=== PATIENT | male | born 1975 | race Two or more races ===

== ENCOUNTER → 2017-03-06 | Outpatient (CLI) | payer OTHER ==
--- NOTE | 2017-03-06 21:14 | XR ---
EXAMINATION TYPE: XR cervical spine limited DATE OF EXAM: 03/06/2017 COMPARISON: NONE HISTORY: 41-year-old male presents with headache, cervicalgia TECHNIQUE: 3 views FINDINGS: Odontoid view is normal. No predental space widening or prevertebral soft tissue swelling. No signifi cant spondylotic change seen. IMPRESSION: No significant degenerative change seen. Alignment is maintained.
== END | disposition home or self-care (01) ==
LOC: RADXRYALE 10:13
PROVIDERS: ATTEND Internal Medicine
DX: M54.2 Cervicalgia (principal)
CPT/HCPCS: 72040

== ENCOUNTER → 2021-06-28 | Outpatient (CLI) | payer OTHER ==
--- NOTE | 2021-06-28 21:30 | CONS ---
CONSULTATION DATE OF SERVICE: 06/28/2021 45-year-old gentleman has been evaluated in Sleep Center for obstructive sleep apnea- hypopnea syndrome. HISTORY OF PRESENT ILLNESS/SLEEP-WAKE EVALUATION: Patient has been diagnosed with obstructive sleep apnea 7 years ago in our Sleep Center. At that time, apnea-hypopnea index was 29.5. He was started on treatment with CPAP and he continued to use CPAP equipment until now. At the beginning, when he was on treatment, he feels better, but now while he continues to use his CPAP he feels sleepiness during the day. SLEEP SCHEDULE: His sleep schedule on weekdays from 11 p.m. to 7:15 am and on weekends he has the same sleep schedule actually. FALLING ASLEEP: No problems with falling asleep. No TV in bedroom. DURING SLEEP: Usually sleeps on the back position. He wakes up from sleep many times and snore while using his CPAP. [place] Sleepiness Scale significantly increased to 12. DURING THE DAY/SLEEP WAKE EVALUATION: He feels sleepiness during the day, episodes of irritability, take naps two times on afternoon. He drinks 1 cup of coffee a day. No history of hypnagogic hallucinations, sleep paralysis or cataplexy. I checked his CPAP unit. He is using equipment every night for more than 4 hours. Average usage 8.6 hours per night. Pressure is 6 cm of water. Leak is 2 L/minute, which is normal. Apnea-hypopnea index is 0.4 which is normal. The patient increased his weight about 30 pounds since previous sleep study. PAST MEDICAL HISTORY: Positive for headaches. MEDICATIONS: None. SOCIAL HISTORY: Negative for smoking, alcohol consumption occasional. FAMILY HISTORY: Positive for arthritis. REVIEW OF SYSTEMS: Sleepiness during the day. PHYSICAL EXAM: A 45-year-old gentleman without distress. BP 122/79, HR 94, RR 16, height 5 feet 7 inches, weight 221, BMI 34.6, temperature 98.1, oxygen saturation at room air 98%. Oropharynx: Low position of soft palate. NECK is wide 17 inches in circumference. Neck: Supple, no JVD. Thyroid is not palpable. LUNGS: Clear to percussion and to auscultation. Good air exchange. No wheezing or rhonchi. HEART: S1, S2 regular. No murmurs, gallops, or rubs. ABDOMEN: Obese. Soft and nontender. Bowel sounds are present. No organomegaly appreciated. EXTREMITIES: No clubbing or cyanosis. WELFARE ELIGIBILITY WORKER: Awake, alert, and oriented X3. Cranial nerves 2 to 7 intact. There is no fasciculation or atrophy. noted. No focal deficits observed. IMPRESSION: 1. Obstructive sleep apnea-hypopnea syndrome by results of polysomnogram in 2014, borderline to severe, apnea-hypopnea index 29.5. The patient demonstrated great compliance with treatment, benefitting from treatment, but recently developed sleepiness while using CPAP equipment. He increased his weight on about 30 pounds compared with the previous visit. Extremely low position of soft palate, wide neck. 2. Obesity. BMI 34.6. 3. Headaches. 4. Sleepiness during the day. PLAN: 1. I adjusted the machine to automatic regimen, changed pressure to the range 5-14 cm of water. 2. Patient will continue to use the equipment every night for the whole night. 3. Followup visit in 4 months. 4. If patient will continue symptoms of excessive daytime sleepiness, we may consider multiple sleep latency test. 5. Losing weight. 6. No driving if feeling sleepiness. 7. Prescription for all necessary CPAP supplies, including AirFit P10 medium mask has been written. Thank you very much for referring this patient for evaluation. Sincerely, Jose Toscano MD, PhD, FAASM Diplomat of [place] [employer] Sleep Medicine Board of [place]ductor Development Technician of [facility] [place] MMODL / JERICHON: [id number] /
== END ==
LOC: SLEEP 15:19
PROVIDERS: ATTEND Internal Medicine
DX: G47.33 Obstructive sleep apnea (adult) (pediatric) (principal); E66.9 Obesity, unspecified; Z68.34 Body mass index [BMI] 34.0-34.9, adult
CPT/HCPCS: 99202

== ENCOUNTER → 2022-06-17 | Outpatient (CLI) | payer OTHER ==
--- NOTE | 2022-06-17 13:26 | CT ---
EXAMINATION TYPE: CT brain w con CT DLP: 1108.4 mGycm, Automated exposure control for dose reduction was used. DATE OF EXAM: 06/17/2022 1:21 PM COMPARISON: None. CLINICAL INDICATION:Male, 46 years old with history of R26.9; R29.898; R25.1, R29.6; PHH, headaches, loss of balance TECHNIQUE: Axial CT images of the brain were obtained after the uneventful administration of 100 cc o f Isovue-[address] intraven[address] One or more CT dose reduction strategies were utilized during this examin ation. FINDINGS: Extra-axial spaces: No abnormal extra-axial fluid collections. Ventricular system: Within normal limits Cerebral parenchyma: No acute intraparenchymal hemorrhage or mass effect. The lindsey-white junction is well differentiated. No abnormal enhancement is seen after the administration of intravenous contras t. Cerebellum: Unremarkable. Mass effect: No evidence of midline shift. Intracranial vasculature: unremarkable Soft tissues: Normal. Calvarium/osseous structures: No depressed skull fracture. Paranasal sinuses and mastoid air cells: Clear. Visualized orbits: Orbital contents are intact. IMPRESSION: No acute intracranial process and no evidence to suggest intracranial mass.
== END | disposition home or self-care (01) ==
LOC: RADCTMAIN 12:51
PROVIDERS: ATTEND Family Medicine
DX: R26.9 Unspecified abnormalities of gait and mobility (principal); R29.898 Other symptoms and signs involving the musculoskeletal system; R25.1 Tremor, unspecified; R29.6 Repeated falls
CPT/HCPCS: 70460; Q9967

== ENCOUNTER → 2022-09-25 | Outpatient (CLI) | payer OTHER ==
--- NOTE | 2022-09-25 18:01 | P.PN ---
Subjective DATE: 09/25/2022 FOLLOW UP VISIT. Patient with obstructive sleep apnea hypopnea syndrome return to sleep center for follow-up visit. Information from previous visit have been reviewed. Patient is using PAP equipment every night for the whole night, getting PAP supplies in time. Patient CPAP unit was broken and he started to use his old CPAP unit. The patient does not have significant problems with the mask, PAP unit and humidification. Patient has symptoms of significant excessive daytime sleepiness. [place] sleepiness scale is in very high range of 21. Positive history of episodes of sleep paralysis and multiple awakenings from sleep while patient is using CPAP. I checked information from PAP unit. PAP unit pressure 6 cm H2O. Usage is 100 % for more then 4 hours, average 8 hours per night. Leak is 8 l/m, which is in acceptable range. Apnea Hypopnea Index is 0.3, which is normal. MEDICATIONS: None During physical exam: GENERAL: A pleasant patient without any distress. VITAL SIGNS: BP 126/84, HR 71, RR 16, weight 215.6, temperature 98.4, oxygen saturation at room air 98 % . HEENT: PERRLA, EOMI.low position of soft palate, Mallapati 3 . NECK: Supple. No JVD. LUNGS: Clear to percussion and to auscultation. Good air exchange. No wheezing or rhonchi. HEART: S1, S2 regular. ABDOMEN: Soft and nontender. Slightly obese EXTREMITIES: No clubbing or cyanosis. COMPUTER FORENSICS INVESTIGATOR: Awake, alert, and oriented x3. No focal deficit. Impressions: 1. Obstructive sleep apnea-hypopnea syndrome. Patient demonstrated great c ompliance with treatment, benefiting from treatment. 2. Significant excessive daytime sleepiness with [place] Sleepiness Scale 21 while patient demonstrated great compliance with CPAP treatment and normal respiration on CPAP dictated necessity to consider additional diagnosis of narcolepsy. 3. Episodes of sleep paralysis. 4. Obesity. Plan: 1. Continue using PAP equipment every night for the whole night. 2. Multiple sleep latency test for objective for evaluation symptoms of significant excessive daytime sleepiness after the night on CPAP. We will also check CPAP pressure and mask fitting. 3. Follow up visit after multiple sleep latency test to discuss results and following plan. 4. Watching and losing weight. 5. Sleep hygiene with regular time in bed for at least 8 hours. 6. Precautions related to driving. No driving if feel any sleepiness. 7. I will maintain prescription for PAP supplies including mask, tube, filters. We will replace CPAP unit. Thank you very much for allowing me to participate in the management of your patient. Jose Toscano MD, PhD, FAASM. Diplomat of [employer], Sleep Medicine Board by [employer] Medical Collector of [facility] [place]
== END ==
LOC: 3 N SLEEP 16:06
PROVIDERS: ATTEND Internal Medicine
DX: G47.33 Obstructive sleep apnea (adult) (pediatric) (principal); Z99.89 Dependence on other enabling machines and devices; E66.9 Obesity, unspecified
CPT/HCPCS: 99212

== ENCOUNTER → 2022-09-30 | Outpatient (CLI) | payer OTHER ==
--- NOTE | 2022-10-01 10:43 | CT ---
EXAMINATION TYPE: CT lumbar spine wo/w con DATE OF EXAM: 09/30/2022 COMPARISON: HISTORY: chronic back pain CT DLP: 2797.1 mGycm CONTRAST: CT scan of the lumbar is performed with IV Contrast, patient injected with mL of Isovue 300. TECHNIQUE: CT of the lumbar spine is performed on a spiral scan at 3 mm thick sections. Reconstructed images are performed in the coronal and sagittal planes. FINDINGS: T12-L1: No focal disc herniation or significant disc bulge is evident. No spinal canal stenosis or neural foraminal stenosis is present. L1-L2: No focal disc herniation or significant disc bulge is evident. No spinal canal stenosis or n eural foraminal stenosis is present L2-L3: No focal disc herniation or significant disc bulge is evident. No spinal canal stenosis or n eural foraminal stenosis is present L3-L4: Mild disc bulge is present with anterior thecal sac contact. No AP spinal canal stenosis is pr esent. Neural foramen appear patent L4-L5: Broad-based disc bulge is anterior thecal sac flattening. Facet hypertrophy has posterior late ral thecal sac compression. Mild canal narrowing may be present. Mild foraminal narrowing is present bilaterally. Lateral recesses appear narrowed more so on the right. Correlate with radicular symptoms . L5-S1: Broad-based disc bulge has anterior thecal sac flattening. Mild posterior disc space narrowing is present. Posterior S1 nerve root displacement is present. No AP spinal canal stenosis is present. Neural foramen are patent. Vertebral alignment appears normal. Vertebral body heights are preserved. IMPRESSION: 1. Mild canal narrowing L4-5 secondary to facet hypertrophy and mild disc bulging. 2. Mild bilateral foraminal narrowing L4-5 L5-S1.
== END | disposition home or self-care (01) ==
LOC: RADCTMAIN 16:26
PROVIDERS: ATTEND Family Medicine
DX: M51.36 Other intervertebral disc degeneration, lumbar region (principal); M47.816 Spondylosis without myelopathy or radiculopathy, lumbar region; M48.061 Spinal stenosis, lumbar region without neurogenic claudication; M99.73 Connective tissue and disc stenosis of intervertebral foramina of lumbar region; M54.31 Sciatica, right side; M54.32 Sciatica, left side; G89.29 Other chronic pain
CPT/HCPCS: 72133; Q9967

== ENCOUNTER → 2022-12-11 | Outpatient (CLI) | payer OTHER ==
--- NOTE | 2022-12-11 13:38 | P.PN ---
Subjective DATE: 12/11/2022 FOLLOW UP VISIT. Patient with obstructive sleep apnea hypopnea syndrome return to sleep center for follow-up visit. Information from previous visit have been reviewed. I discussed with patient and family results of recent multiple sleep latency test. Mean sleep latency test 10.9, which may indicate some sleepiness but longer than is necessary for diagnosis of hypersomnia and narcolepsy. Patient is using PAP equipment every night for the whole night, getting PAP supplies in time. The patient does not have significant problems with the mask, PAP unit and humidification. Patient does not sleep well, has a lot of thinking during the night .[place] sleepiness scale is 16, which is significantly above normal range and indicates sleepiness. I checked information from PAP unit. PAP unit pressure 7.4 cm H2O. Usage is 100 % for more then 4 hours, average 8.6 hours per night. Leak is 1 l/m, which is perfect. Apnea Hypopnea Index is 0.3, which is normal. MEDICATIONS: None at the present time During physical exam: GENERAL: A pleasant patient without any distress. VITAL SIGNS: BP 127/78, HR 72, RR 18 , weight 225.0, temperature 98.1, oxygen saturation at room air 98 % . HEENT: PERRLA, EOMI.low position of soft palate, Mallapati 3 . NECK: Supple. No JVD. LUNGS: Clear to percussion and to auscultation. Good air exchange. No wheezing or rhonchi. HEART: S1, S2 regular. ABDOMEN: Soft and nontender.[] EXTREMITIES: No clubbing or cyanosis. MOTOR AND GENERATOR ASSEMBLER: Awake, alert, and oriented x3. No focal deficit. Impressions: 1. Obstructive sleep apnea-hypopnea syndrome. Patient demonstrated great compliance with treatment, benefiting from treatment. Sometimes his awakenings from sleep with vivid dreams 2. Multiple sleep latency test showed a mild sleepiness, but not in the range confirming narcolepsy or idiopathic hypersomnia. 3. Obesity. 4. History of sleep paralysis. 5. Awakenings from sleep, sometimes with vivid dreams. Plan: 1. Continue using PAP equipment every night for the whole night. 2. I changed pressure up to 9 cm of water. 3. Clonazepam 0.5 mg at bedtime. 4. Advised patient to remove all remaining water from humidifier canister daily and make it dry after each usage. Refill canister with fresh distilled water before each usage. 5. Sleep hygiene with regular time in bed for at least 8 hours. 6. Precautions related to driving. No driving if feel any sleepiness. 7. I will maintain prescription for PAP supplies including mask, tube, filters. 8. Follow up visit in 2 months or earlier if patient has any problems. 9. Watching and losing weight. Thank you very much for allowing me to participate in the management of your patient. Jose Toscano MD, PhD, FAASM. Diplomat of [employer], Sleep Medicine Board by [employer] Front End Engineer of [facility] [place]
== END ==
LOC: 3 N SLEEP 11:29
PROVIDERS: ATTEND Internal Medicine
DX: G47.33 Obstructive sleep apnea (adult) (pediatric) (principal); E66.9 Obesity, unspecified; G47.53 Recurrent isolated sleep paralysis; Z99.89 Dependence on other enabling machines and devices
CPT/HCPCS: 99212